=== PATIENT | female | born 1970 | race Caucasian/White ===

== ENCOUNTER 2018-08-24 13:34 | Inpatient (IN) ==
[2018-08-24] MEDS ORDERED: Haloperidol Lactate 5 MG/ML VIAL IM PRN (13:43)
[2018-08-24] MEDS ORDERED: Mag Hydrox/Al Hydrox/Simeth 30 ML UDC PO PRN (13:43)
[2018-08-24] MEDS ORDERED: traZODone 50 MG TABLET PO PRN (13:43)
[2018-08-24] MEDS ORDERED: *HR* LORazepam 2 MG/ML VIAL IM PRN (13:43)
[2018-08-24] MEDS ORDERED: *HR* LORazepam 1 MG TABLET PO PRN (13:43)
[2018-08-24] MEDS ORDERED: MOM Conc 10 ML UD.LIQ PO PRN (13:43)
[2018-08-24] MEDS: Acetaminophen 325 MG TABLET PO PRN (17:51)
[2018-08-24] MEDS: hydrOXYzine pamoate 25 MG CAPSULE PO PRN (21:53)
[2018-08-25] MEDS: Acetaminophen 325 MG TABLET PO PRN (08:29)
[2018-08-25] MEDS: Loratadine 10 MG TABLET PO SCH (08:29)
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
[2018-08-25] MEDS: hydrOXYzine pamoate 25 MG CAPSULE PO PRN (12:53)
[2018-08-25] MEDS: *HR* LORazepam 0.5 MG TABLET PO PRN (22:00)
[2018-08-25] MEDS: Melatonin 3 MG TABLET PO SCH (22:00)
[2018-08-26] MEDS: Loratadine 10 MG TABLET PO SCH (08:25)
--- NOTE | 2018-08-26 10:45 | Psychiatry Progress Note ---
Date of Encounter: 08/26/18 Time of Encounter: 10:00 Subjective Interval history: Patient is a 47 year old female who was admitted for suicidal ideation which has since resolved. Patient endorses her mood this morning as "good" and states she slept "much better last night". She states her depression is "very low", rating it 1-2/10, 10 being the worst. In regards to anxiety, patient states "I only have anxiety if I start to think about what happened. If I'm still and just being I have no anxiety." Ms. López denies both suicidal and homicidal ideation this morning. She endorses a "good" appetite. Patient is significantly less distressed today throughout interview. She is not tearful and is actually smiling. She states "I know I'm a good person. I think the world does too." She is asking for a daily devotional book for stress and healing. Review of Systems Psychiatric: Reports: depression, anxiety. Denies: abnormal sleep pattern, suicidal ideation, change in appetite, homicidal ideation, auditory hallucinations, visual hallucinations Results - Vital Signs Vital Signs: Temp Pulse Resp BP Pulse Ox 97.6 F 78 16 113/67 98 08/25/18 21:00 08/25/18 21:00 08/25/18 21:00 08/25/18 21:00 08/25/18 21:00 Assessment and Plan (1) Grief reaction Current visit: Yes Status: Acute Plan: Continue hospitalization, Close observation, Suicide Precautions per unit protocol, Encourage participation in unit milieu, Group Therapy, Monitor sleep, Monitor appetite Additional Plan: Continue sertraline 150 mg po for mood. Continue lorazepam 0.5 mg po bid prn for anxiety. Discharge when clinically stable. Risks, benefits, side effects, alternatives discussed w/pt: Yes Patient agreeable to treatment: Yes (2) Suicidal ideation Current visit: Yes Status: Resolved Plan: Continue hospitalization, Close observation, Suicide Precautions per unit protocol, Encourage participation in unit milieu, Group Therapy, Monitor sleep, Monitor appetite Additional Plan: Continue sertraline 150 mg po for mood. Discharge when clinically stable. Risks, benefits, side effects, alternatives discussed w/pt: Yes Patient agreeable to treatment: Yes (3) Depressive disorder Current visit: Yes Status: Chronic Plan: Continue hospitalization, Close observation, Suicide Precautions per unit protocol, Encourage participation in unit milieu, Group Therapy, Monitor sleep, Monitor appetite Additional Plan: Continue sertraline 150 mg po for mood. Discharge when clinically stable. Risks, benefits, side effects, alternatives discussed w/pt: Yes Patient agreeable to treatment: Yes Consult Discharge Plan - Plan Additional Instructions: Discharge home when clinically stable. Referrals: NONE,PCP [Primary Care Provider] - Psychiatry Exam - Constitutional Vitals: Temp Pulse Resp BP Pulse Ox 97.6 F 78 16 113/67 98 08/25/18 21:00 08/25/18 21:00 08/25/18 21:00 08/25/18 21:00 08/25/18 21:00 - Psychiatric Patient Orientation: Yes Person, Yes Time, Yes Place Behavior: calm, cooperative Psychomotor activity: Normal Eye Contact: Maintains Eye Contact Mood Description: Euthymic/stable Patient description of mood: "okay" Affect description: congruent with mood, full range Speech Volume: Normal Speech pattern: normal rate, normal rhythm, normal tone, fluent, spontaneous Language & Vocabulary: consistent with education Thought Process: Linear, Goal Oriented Thought Content: No Suicidal ideation, No Homicidal ideation, No Overt delusions Perceptual Disturbances: No Auditory hallucinations, No Visual hallucinations Attention Span Ability: Capable of Focused Attention Memory Description: Grossly Intact Patient Reliability: Reliable Historian Fund of knowledge: Yes abstraction ability, Yes aware of current events Intelligence Estimate: Average Judgment: Limited Insight: Partial
[2018-08-26] MEDS: hydrOXYzine pamoate 25 MG CAPSULE PO PRN (14:26)
[2018-08-26] MEDS: Melatonin 3 MG TABLET PO SCH (21:53)
[2018-08-26] MEDS: *HR* LORazepam 0.5 MG TABLET PO PRN (22:02)
[2018-08-27] MEDS: Loratadine 10 MG TABLET PO SCH (09:08)
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
[2018-08-27] MEDS: *HR* LORazepam 0.5 MG TABLET PO PRN (21:55)
[2018-08-27] MEDS: Melatonin 3 MG TABLET PO SCH (21:55)
[2018-08-28] MEDS: hydrOXYzine pamoate 25 MG CAPSULE PO PRN (03:57)
[2018-08-28] MEDS: Loratadine 10 MG TABLET PO SCH (09:06)
[2018-08-28 09:10] VITALS: BP 112/71
== END 2018-08-28 18:00 | disposition home or self-care (01) | DRG 885 ==
LOC: 1ANU 13:34
PROVIDERS: ADMIT Psychiatry & Neurology Psychiatry; ATTEND Psychiatry & Neurology Psychiatry